=== PATIENT | male | born 1945 | race Caucasian/White ===

== ENCOUNTER 2020-09-28 14:48 | Outpatient (CLI) | payer MEDICARE, OTHER, SELFPAY ==
--- NOTE | 2020-09-28 15:03 | XR_ITS ---
WS: [id number] Exam: XR chest 2V* [id number] Date/Time of Exam: 09/28/2020 3:06 PM Reason For Exam: ASBESTOS EXPOSURE Comparison 05/23/2017. The lungs are hyperinflated and clear. No pleural effusions. Normal cardiomediastinal structures. Tho racolumbar scoliosis. Pectus excavatum. No change since previous exam. XR/XR chest 2V* [id number] IMPRESSION: 1. Pulmonary hyperinflation which may indicate obstructive lung disease. 2. No acute cardiopulmonary finding. Scoliosis and pectus excavatum.
== END 2020-09-28 14:49 | disposition home or self-care (01) ==
LOC: RAD 14:56
PROVIDERS: PCP Nurse Practitioner Family; Visit Provider Internal Medicine
DX: Z77.090 Contact with and (suspected) exposure to asbestos (principal)
CPT/HCPCS: 71046

== ENCOUNTER → 2023-08-02 10:26 | Outpatient (BNVA) | payer MEDICARE, SELFPAY | PROVIDERS: PCP Nurse Practitioner Family; Referring Provider Internal Medicine; Visit Provider Dermatology | DX: D48.5 Neoplasm of uncertain behavior of skin (principal); B07.8 Other viral warts; L57.0 Actinic keratosis; L81.4 Other melanin hyperpigmentation; L57.8 Other skin changes due to chronic exposure to nonionizing radiation | CPT/HCPCS: 11102; 17000; 17110; 99203 ==

== ENCOUNTER → 2023-08-27 13:39 | Outpatient (BNVA) | payer MEDICARE, SELFPAY | PROVIDERS: PCP Nurse Practitioner Family; Visit Provider Dermatology | DX: C43.4 Malignant melanoma of scalp and neck (principal); D69.2 Other nonthrombocytopenic purpura; S60.031A Contusion of right middle finger without damage to nail, initial encounter; X58.XXXA Exposure to other specified factors, initial encounter; D18.01 Hemangioma of skin and subcutaneous tissue; B35.1 Tinea unguium; L82.1 Other seborrheic keratosis; D17.23 Benign lipomatous neoplasm of skin and subcutaneous tissue of right leg; L57.8 Other skin changes due to chronic exposure to nonionizing radiation | CPT/HCPCS: 99214 ==

== ENCOUNTER → 2023-11-29 09:51 | Outpatient (BNVA) | payer MEDICARE, SELFPAY | PROVIDERS: PCP Nurse Practitioner Family; Visit Provider Dermatology | DX: D48.5 Neoplasm of uncertain behavior of skin (principal); L57.2 Cutis rhomboidalis nuchae; L57.8 Other skin changes due to chronic exposure to nonionizing radiation; D69.2 Other nonthrombocytopenic purpura; L81.4 Other melanin hyperpigmentation; Z85.820 Personal history of malignant melanoma of skin | CPT/HCPCS: 11102; 99213 ==

== ENCOUNTER → 2024-05-30 08:04 | Outpatient (BNVA) | payer MEDICARE, SELFPAY | PROVIDERS: PCP Nurse Practitioner Family; Visit Provider Nurse Practitioner Family | DX: L81.4 Other melanin hyperpigmentation (principal); L82.1 Other seborrheic keratosis; L57.8 Other skin changes due to chronic exposure to nonionizing radiation; Z85.820 Personal history of malignant melanoma of skin; L57.0 Actinic keratosis | CPT/HCPCS: 17000; 99213 ==

== ENCOUNTER 2024-12-26 09:08 | Outpatient (CLI) | payer MEDICARE, SELFPAY ==
--- NOTE | 2024-12-26 09:15 | XRR_ITS ---
XR/XR cervical spine fl/ex [id number] PROCEDURE INFORMATION: Exam: XR Cervical Spine Exam date and time: 12/26/2024 9:28 AM Age: 79 years old Clinical indication: Injury or trauma; Blunt trauma; Injury details: Fall x 3 months ago, PT states he has pain in his entire spine since. ; Additional info: Acute back pain TECHNIQUE: Imaging protocol: Radiologic exam of the cervical spine. Views: 2 or 3 views. COMPARISON: CR XR chest 2V* [id number] 09/28/2020 3:09 PM FINDINGS/IMPRESSION: Bones/joints: There is a grade 1 anterolisthesis of C6 over C7, which remains stable on flexion and extension views. There is a grade 1 retrolisthesis of C4 over C5, which remains stable on flexion and extension views. No evidence of a cervical spine fracture. There are multilevel chronic degenerative changes throughout the cervical spine. Soft tissues: No prevertebral soft tissue swelling.
--- NOTE | 2024-12-26 09:15 | XRR_ITS ---
XR/XR lumbar spine 2-3V* [id number] PROCEDURE INFORMATION: Exam: XR Lumbosacral Spine Exam date and time: 12/26/2024 9:28 AM Age: 79 years old Clinical indication: Injury or trauma; Blunt trauma (contusions or hematomas); Injury details: Fall x 3 months ago, PT states he has pain in his entire spine since. ; Additional info: Acute back pain TECHNIQUE: Imaging protocol: Radiologic exam of the lumbosacral spine. Views: 2 or 3 views. 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 There are severe multilevel chronic degenerative changes throughout including multilevel chronic degenerative disc space narrowing and significant degenerative facet arthropathy. No fracture deformity identified. There are sclerotic changes associated with the sacroiliac joints suggesting chronic sacroiliitis. Soft tissues: Unremarkable.
--- NOTE | 2024-12-26 09:15 | XRR_ITS ---
XR/XR thoracic spine 3V* [id number] PROCEDURE INFORMATION: Exam: XR Thoracic Spine Exam date and time: 12/26/2024 9:28 AM Age: 79 years old Clinical indication: Injury or trauma; Blunt trauma (contusions or hematomas); Injury details: Fall x 3 months ago, PT states he has pain in his entire spine since. ; Additional info: Acute back pain, got verbal from tiffany to change to 3v. TECHNIQUE: Imaging protocol: Radiologic exam of the thoracic spine. Views: 3 views. COMPARISON: CR XR chest 2V* [id number] 09/28/2020 3:09 PM FINDINGS/IMPRESSION: Bones/joints: There is a stable rotatory scoliosis of the thoracolumbar spine. There are moderate to severe multilevel chronic degenerative changes throughout the thoracic spine. No fracture identified. Soft tissues: Unremarkable. .
== END 2024-12-26 09:09 | disposition home or self-care (01) ==
PROVIDERS: PCP Internal Medicine; Visit Provider Nurse Practitioner Family
DX: M51.34 Other intervertebral disc degeneration, thoracic region (principal); M41.9 Scoliosis, unspecified; M50.30 Other cervical disc degeneration, unspecified cervical region; M47.819 Spondylosis without myelopathy or radiculopathy, site unspecified
CPT/HCPCS: 72040; 72072; 72100

== ENCOUNTER → 2025-02-12 13:20 | Outpatient (BNVA) | payer MEDICARE, SELFPAY | PROVIDERS: PCP Internal Medicine; Visit Provider Nurse Practitioner Family | DX: L82.1 Other seborrheic keratosis (principal); D18.01 Hemangioma of skin and subcutaneous tissue; L57.8 Other skin changes due to chronic exposure to nonionizing radiation; Z08 Encounter for follow-up examination after completed treatment for malignant neoplasm; Z85.820 Personal history of malignant melanoma of skin; L57.0 Actinic keratosis | CPT/HCPCS: 17000; 99213 ==